=== PATIENT | male | born 1975 | race Caucasian/White ===

== ENCOUNTER 2020-12-07 08:11 | Emergency (ER) | payer OTHER, SELFPAY ==
[2020-12-07 08:13] VITALS: BP 139/76; PULSE 56; RESP 16; TEMP 36.3; O2SAT 100; BMI 19.9
--- NOTE | 2020-12-07 08:52 | EKG12_ITS ---
Test Reason : FALL Blood Pressure : / mmHG Vent. Rate : 051 BPM Atrial Rate : 051 BPM P-R Int : 134 ms QRS Dur : 090 ms QT Int : 434 ms P-R-T Axes : 068 048 037 degrees QTc Int : 400 ms Sinus bradycardia Otherwise normal ECG Confirmed by KASHMIR COX, ABNER ([id number]), city editor BYRON MICHEL ([id number]) on 12/11/2020 10:50:50 AM Referred By: JR Confirmed By:ABNER MARLOW MD
--- NOTE | 2020-12-07 08:54 | RAD_ITS ---
STUDY: X-RAY CHEST REASON FOR EXAM: Male, 45 years old. syncope TECHNIQUE: Single view of the chest was obtained COMPARISON: None. FINDINGS: No consolidative process, pleural effusion or pneumothorax. Trachea is midline. Osseous structures demonstrate no acute abnormalities. IMPRESSION: No acute cardiopulmonary pathology. Electronically Signed: Chevy Kimbrough MD at 9:51 EDT Tel , Service support , RAD/Chest 1 View (Portable)
--- NOTE | 2020-12-07 08:54 | RAD_ITS ---
STUDY: X-RAY - LUMBAR SPINE REASON FOR EXAM: Male, 45 years old. Back pain TECHNIQUE: 2 view(s) of the lumbar spine were obtained. COMPARISON: None FINDINGS: No evidence for acute fractures or dislocation. Scattered Schmorl''s nodes in the lumbar spine. Transitional vertebra at the lumbosacral junction. Mild wedging of the lower thoracic vertebra. IMPRESSION: No acute fractures or dislocation. Electronically Signed: Chevy Kimbrough MD at 9:49 EDT Tel , Service support , RAD/Lumbar Spine 2 or 3 Views
--- NOTE | 2020-12-07 08:55 | ED.DCSUM_ITS ---
History of Present Illness Chief Complaint: Back Informant: Patient Narrative: 45-year-old male presenting with an episode of syncope. He states he has had at least 15 episodes of syncope over his lifetime. This initially started when he was in high school. He states he had an EKG performed at that time which did not show anything. He states that when he gets sick he usually gets orthostatic. He has not felt unwell until last evening. He states that his legs were cramping. He is tried to jump up really fast and felt lightheaded and had an episode of syncope. He admits to LOC but does not know how long. Patient complains of lower back pain after falling. He states he is not naus eous, having chest pain, short of breath. He states that every time he stands he feels lightheaded. Patient states that prior to last evening he has felt well and has been eating and drinking normally. He states he has been making normal stool and urine. He does admit to darker urine. Patient denies significant medical problems otherwise. Past Medical History - Allergies and Home Meds Allergies/Adverse Reactions: Allergies No Known Allergies Allergy (Verified 12/07/20 08:13) Primary Care Physician: Branden Vanegas MD [Primary Care Provider] - Prior records reviewed: Yes Past Medical History: - - History of syncope Surgical History: noncontributory Lives: Alone Smoking Status: Never smoker Alcohol: None Drugs: None Review of Systems General: Denies: Chills, Fever, Sweats Eyes: Denies: Visual changes - bilaterally, Diplopia ENT: Denies: Rhinorrhea, Sore throat Cardiovascular: Denies: Chest pain, Palpitations Respiratory: Denies: Dyspnea, Cough, Dyspnea on exertion Gastrointestinal: Denies: Abdominal pain, Nausea, Vomiting, Diarrhea, Melena, Hematochezia Musculoskeletal: Reports: Back pain - Lumbar, - - Muscle cramps of the lower extremities. Skin: Denies: Rash, Abscess Neurological: Denies: Headache, Weakness, Parasthesia Psych: Denies: Depression, Anxiety Endocrine: Denies: Polyuria, Polydipsia Physical Exam Vital Signs/Narrative: Vital Signs Temp Pulse Resp BP Pulse Ox 12/07/20 08:13 97.4 F L 56 L 16 139/76 H 100 Inital Vital Signs reviewed: Yes General: Well nourished, No Acute Distress Head: Normocephalic, Atraumatic Eyes: Perrl, EOMI. Negative for: Pale conjunctiva ENT: Moist mucous membranes, No rhinorrhea Cardiovascular: Regular rate, Regular rhythm Respiratory: No distress, CTA bilaterally Abdomen: Soft, Nontender, Nondistended Rectal: Deferred Back: Spinal tenderness - Tenderness to palpation midline at at L1-L2. No deformity. No step-off. Extremities: Nontender, No edema Skin: Normal color, No rash. Negative for: Cyanosis, Diaphoresis Neurological: Alert, Oriented x3, Cranial nerves II-XII grossly intact Psychological: Normal affect, Normal Mood Diagnostic/Tx/Re-eval - Medical Decision Making Patient presenting with syncopal episode which he states he has had multiple times throughout his life. He is denying chest pain or shortness of breath. Does complain of lower back pain where he fell. Patient has no strength or neurological deficits from this injury. There is no external injury visible. Patient had EKG performed on arrival which shows sinus rhythm at 51 bpm without signs of ischemic changes as interpreted by myself. Chest x-ray shows no acute cardiopulmonary process as interpreted by myself and radiologist agree. XR of the lumbar spine does show no fracture or subluxation as interpreted by myself and radiologist agree. T brain negative for acute process. Patient did have orthostatics checked in ER and the patient did get hypotensive and bradycardic with this. He was symptomatic. He is given a liter of IV fluids. Lab work obtained shows he is slightly dehydrated. His electrolytes are normal. Patient has an elevated bilirubin but states he always has this. He is having no abdominal pain. After patient good received IV fluids patient was able to ambulate without any difficulties. He is counseled to follow-up with his primary care physician for follow-up. Is given return precautions. Patient stable for discharge. Impression: 1. Syncope 2. Orthostatic hypotension 3. Dehydration 4. Closed head injury 5. Elevated bilirubin ED Disposition - Plan for ED Patient: Disposition: Home or Assisted Living Instructions: ED Back Contusion, ED Hypotension, Orthostatic, ED Near-Fainting- Vagal Reaction Referrals: Branden Vanegas MD [Primary Care Provider] -
--- NOTE | 2020-12-07 08:56 | CT_ITS ---
STUDY: CT BRAIN WITHOUT CONTRAST REASON FOR EXAM: Male, 45 years old. Head injury RADIATION DOSAGE (If Supplied By Facility): CTDIvol = ( 44.99 ) mGy, DLP = ( 829.85 ) mGycm TECHNIQUE: Transaxial CT imaging of the brain was performed without administration of intravenous contrast material. Individualized dose optimization techniques were used for this CT. COMPARISON: No relevant priors. FINDINGS: Normal soft tissue structures. Normal calvarium. Normal size ventricles and extra-axial spaces for the patient''s age. Normal white matter tracts of the cerebral hemispheres. Normal basal ganglia and thalami. Normal brainstem. Normal cerebellum. There is no intracranial hemorrhage. There are no findings of an acute ischemic infarction. Normal visualized paranasal sinuses. CT/Brain/Head without Contrast IMPRESSION: Normal unenhanced CT scan of the brain. Electronically Signed: Lito Vasquez MD at 10:18 EDT Tel , Service support ,
[2020-12-07 08:58] VITALS: BP 111/66; BP 124/74; BP 94/56; PULSE 36; PULSE 47; PULSE 50
[2020-12-07] MEDS: Ketorolac 15 MG/ML Vial IV (09:15)
[2020-12-07] MEDS: 0.9% Normal Saline 1,000 ML 1000 ML IV (09:15)
[2020-12-07 09:19] LABS: Absolute Lymphocyte Count 0.79 X10^3/uL (0.83-4.51); Absolute Neutrophil Count 8.5 X10^3/uL (2.0-7.7); Basophil# 0.03 X10^3/uL; Basophil% 0.3 % (0-1); Eosinophil# 0.02 X10^3/uL; Eosinophils% 0.2 % (0-5); Hematocrit 44.4 % (40-54); Hemoglobin 14.7 g/dL (13.0-16.5); Lymphocyte # 0.79 X10^3/ul (4.0); Mean Corp Hgb Conc 33.1 g/dL (32-36); Mean Corpuscular Hgb 30.7 pg (27.0-32.0); Mean Corpuscular Volume 92.7 fL (80-94); Mean Platelet Vol. 10.7 fl (6.2-12.0); Monocyte# 0.55 X10^3/uL; Monocyte% 5.6 % (0-10); NRBC Flagged by Analyzer 0 % (0-5); Neutrophil # 8.45 X10^3/uL (2.7-7.7); Neutrophil % 85.3 % (47-70); Platelet Count 232 K/mm3 (150-450); RBC Distribution Width CV 11.9 % (11.6-14.6); RBC Distribution Width SD 40.6 fl (35.1-43.9); Red Blood Count 4.79 M/mm3 (4.6-6.2); White Blood Count 9.9 K/mm3 (4.4-11.0)
[2020-12-07 09:44] LABS: ALB/GLOB Ratio 1.2 RATIO (0.9-2.4); AST(SGOT) 30 U/L (15-37); Alanine Aminotransfer ALT/SGPT 25 U/L (16-61); Alkaline Phosphatase 101 U/L (45-117); Anion Gap 5 (5-15); BUN 22 mg/dL (7-18); BUN/Creat Ratio 22.4 RATIO (10-20); Chloride 104 mmol/L (98-107); Creatinine, Serum 0.98 mg/dL (0.70-1.30); EST Glomerular Filtration Rate 88 mL/min (>60); Est Glom Filt Rate - Afr Amer 106 mL/min (>60); Estimated Creatinine Clearance 83.31 ml/min; Globulin 3.2 g/dL (2.2-4.2); Glucose 90 mg/dL (74-106); Potassium 4.5 mmol/L (3.5-5.1); Protein, Total 7.2 g/dL (6.4-8.2); Sodium Level 136 mmol/L (136-145)
[2020-12-07 10:02] VITALS: BP 179/64; PULSE 51; RESP 12; O2SAT 97
[2020-12-07 11:35] VITALS: BP 113/68; PULSE 65; RESP 14
== END 2020-12-07 11:41 | disposition home or self-care (01) ==
PROVIDERS: Emergency Provider Student in an Organized Health Care Education/Training Program; PCP Family Medicine
DX: I95.1 Orthostatic hypotension (principal); E86.0 Dehydration; S09.90XA Unspecified injury of head, initial encounter; X58.XXXA Exposure to other specified factors, initial encounter; Y93.89 Activity, other specified; Y92.89 Other specified places as the place of occurrence of the external cause; Y99.8 Other external cause status
CPT/HCPCS: 70450; 71045; 72100; 80053; 83735; 84484; 85025; 93005; 96361; 96374; 99283

== ENCOUNTER → 2021-01-29 16:08 | Outpatient (CLI) | payer OTHER, SELFPAY ==
[2021-01-29 15:23] VITALS: BMI 20.9
[2021-01-29 18:04] LABS: Thyroid Stim Hormone (TSH) 1.41 uIU/mL (0.358-3.74)
== END ==
PROVIDERS: PCP Family Medicine; Referring Provider Internal Medicine Cardiovascular Disease; Visit Provider Internal Medicine Cardiovascular Disease
DX: R55 Syncope and collapse (principal); R00.1 Bradycardia, unspecified
CPT/HCPCS: 36415; 84443

== ENCOUNTER → 2021-02-03 12:47 | Outpatient (CLI) | payer OTHER, SELFPAY ==
[2021-01-29 15:23] VITALS: BMI 20.9
--- NOTE | 2021-02-03 12:51 | ECHOD_ITS ---
Reason For Study: Arrhythmia Procedure This was a 2D Doppler, Color Flow transthoracic echocardiogram. Bubble study performed. Exam performed in department. Left Ventricle Normal LV size. Left ventricular systolic function is normal. The estimated ejection fraction is 60 %. Normal diastology for age. No regional wall motion abnormalities noted. Right Ventricle Normal RV size. Normal systolic function. Atria Normal left atrium. Normal right atrium. Mitral Valve Normal mitral valve. Tricuspid Valve Normal tricuspid valve. Mild tricuspid valve insufficiency. Pulmonary artery systolic pressure is 20 mmHg. Aortic Valve Normal aortic valve. Trisinus/trileaflet aortic valve. Pulmonic Valve Normal pulmonic valve. Great Vessels Normal aortic root. The pulmonary artery is normal size. Inferior vena cava collapse with respiration. Pericardium/Pleural No pericardial effusion. Medication 22 gauge I.V. with prn adaptor inserted into right arm. Performed a rapid injection of agitated mix of 9 cc saline and 1cc air to assess for atrial septal defect. MMode/2D Measurements & Calculations LVIDd: 4.0 cm IVSd: 0.99 cm LA dimension: 2.5 cm LVIDs: 3.0 cm LVPWd: 1.1 cm RVDd: 3.9 cm FS: 24.4 % LAV(MOD-bp): 45.0 ml LA A4 area: 15.8 cm2 RA A4 area: 15.6 cm2 LAV(MOD-bp) Indexed: 25.2 ml/m2 LAV(MOD-sp2): 43.0 ml LAV(MOD-sp4): 42.5 ml Time Measurements MV dec time: 0.22 sec Doppler Measurements & Calculations MV E max kain: 109.5 cm/sec Lat Peak E' Kain: 19.6 cm/sec Med Peak E' Kain: 13.4 cm/sec MV A max kain: 56.6 cm/sec E/E' lat: 5.6 E/E' med: 8.1 MV E/A: 1.9 MV V2 max: 111.0 cm/sec MV P1/2t max kain: 112.5 cm/sec Ao V2 max: 124.2 cm/sec MV max P.9 mmHg MV P1/2t: 77.8 msec Ao max P.2 mmHg MV V2 mean: 39.2 cm/sec MV dec slope: 423.4 cm/sec2 MV mean P.88 mmHg MV V2 VTI: 36.6 cm MVA(P1/2t): 2.8 cm2 LV V1 max: 104.4 cm/sec PA V2 max: 98.2 cm/sec TR max kain: 200.3 cm/sec LV V1 max P.4 mmHg TR max P.0 mmHg ECHO/Echo Complete Interpretation Summary Normal LV size. Left ventricular systolic function is normal. The estimated ejection fraction is 60 %. Normal diastology for age. Ordering Physician: Anatoliy Fatima Referring Physician: Branden Vanegas Performed By: Walker Johnston RCS
== END ==
PROVIDERS: PCP Family Medicine; Referring Provider Internal Medicine Cardiovascular Disease; Visit Provider Internal Medicine Cardiovascular Disease
DX: R55 Syncope and collapse (principal); R00.1 Bradycardia, unspecified
CPT/HCPCS: 93225; 93226; 93306; A4216

== ENCOUNTER 2023-03-03 12:19 | Day surgery (SDC) | payer OTHER, SELFPAY ==
[2023-03-03] VITALS (10 sets, daily range): BP systolic 117–166; BP diastolic 61–85; PULSE 51–84; RESP 16–18; TEMP 36.2–37.2; O2SAT 94–100; BMI 20.7
--- NOTE | 2023-03-03 13:07 | CT_ITS ---
STUDY: CT ABDOMEN AND PELVIS WITHOUT CONTRAST REASON FOR EXAM: Male, 47 years old. 3 day history of right flank pain and right groin pain. RADIATION DOSAGE (If Supplied By Facility): CTDIvol = ( 6.05 ) mGy, DLP = ( 1288.61 ) mGycm TECHNIQUE: Transaxial images were obtained from the dome of the diaphragm to the symphysis pubis without oral contrast, and without intravenous contrast. Sagittal and coronal images were reconstructed. Individualized dose optimization techniques were used for this CT. COMPARISON: None. FINDINGS: The visualized lung bases are unremarkable. The visualized portions of the heart are within normal limits. Normal liver. Normal gallbladder and extrahepatic biliary system. Normal spleen. Normal pancreas. Normal bilateral adrenal glands. Normal right kidney. Normal left kidney. Normal visualized stomach. Normal small intestine. Normal colon. There is a tubular, thick-walled appendix (>7mm), consistent with acute appendicitis. Increased markings are seen in the surrounding peritoneal fat suggestive of inflammatory change. Normal abdominal aorta. Normal inferior vena cava. Normal retroperitoneum. Normal urinary bladder. Normal abdominal wall. Mild degree of disc space narrowing and spondylosis at the L5-S1 level. CT/Abdomen/Pelvis without Cont IMPRESSION: Findings in keeping with a non-complicated acute appendicitis. Electronically Signed: Rafy Cao MD at 14:34 EDT ,
[2023-03-03] MEDS: 0.9% Normal Saline 1,000 ML 1000 ML IV (13:21)
[2023-03-03 13:29] LABS: Bacteria 0 SEEN /hpf (None Seen); Mucous, Urine 0 SEEN /hpf (<or=2+); Red Blood Cells-Urine 0 SEEN /hpf (0-5); Squamous Epithelial Cells - UA 0 SEEN /hpf (0-5); White Blood Cells 0 SEEN /hpf (0-5)
[2023-03-03 13:37] LABS: Absolute Lymphocyte Count 0.59 X10^3/uL (0.83-4.51); Absolute Neutrophil Count 10.7 X10^3/uL (2.0-7.7); Basophil# 0.04 X10^3/uL; Basophil% 0.3 % (0-1); Hematocrit 45.8 % (40-54); Hemoglobin 14.9 g/dL (13.0-16.5); Lymphocyte # 0.59 X10^3/ul (0.83-4.51); Lymphocyte % 4.8 % (19-41); Mean Corp Hgb Conc 32.5 g/dL (32-36); Mean Corpuscular Hgb 30.4 pg (27.0-32.0); Mean Corpuscular Volume 93.5 fL (80-94); Mean Platelet Vol. 10.8 fl (6.2-12.0); Monocyte# 0.89 X10^3/uL; Monocyte% 7.3 % (0-10); NRBC Flagged by Analyzer 0 % (0-5); Neutrophil # 10.67 X10^3/uL (2.7-7.7); Neutrophil % 87.2 % (47-70); POSITIVE DIFFERENTIAL YES; Platelet Count 195 K/mm3 (150-450); RBC Distribution Width CV 12.2 % (11.6-14.6); RBC Distribution Width SD 42.4 fl (35.1-43.9); White Blood Count 12.2 K/mm3 (4.4-11.0)
[2023-03-03 13:43] LABS: Color, Urine Yellow (Yellow); Glucose, Dipstick Normal (Normal); Ketone-Dipstick Negative (Negative); Leukocyte Esterase-Dipstick Negative /ul (Negative); Nitrite-Dipstick Negative (Negative); Occult Blood-Urine Negative /ul (Negative); Protein-Dipstick 30 mg/dl (Negative); Specific Gravity, Urine 1.015 (1.002-1.030); Urine Bilirubin Dipstick Negative (Negative); Urine Clarity Clear (Clear); Urine Urobilinogen Normal (Normal)
[2023-03-03 13:43] LABS: Differential Indicated SCAN CRITERIA MET
[2023-03-03 13:58] LABS: AST(SGOT) 26 U/L (15-37); Alanine Aminotransfer ALT/SGPT 23 U/L (16-61); Albumin, Serum 4.1 g/dL (3.2-5.0); Alkaline Phosphatase 101 U/L (45-117); Anion Gap 6 (5-15); BUN 15 mg/dL (7-18); BUN/Creat Ratio 13.3 RATIO (10-20); Calcium,Total 9.3 mg/dL (8.5-10.1); Chloride 102 mmol/L (98-107); Creatinine, Serum 1.13 mg/dL (0.70-1.30); EST Glomerular Filtration Rate 74 mL/min (>60); Est Glom Filt Rate - Afr Amer 90 mL/min (>60); Estimated Creatinine Clearance 73.37 ml/min; Globulin 4.1 g/dL (2.2-4.2); Glucose 108 mg/dL (74-106); Lipase 87 U/L (13-75); Potassium 3.7 mmol/L (3.5-5.1); Protein, Total 8.2 g/dL (6.4-8.2); Sodium Level 134 mmol/L (136-145)
[2023-03-03 14:15] LABS: Differential Comment SCANNED
--- NOTE | 2023-03-03 15:11 | ED.VIS.GI ---
HPI HPI - GI History of Present Illness Chief Complaint: Flank Pain Informant: patient Abdominal Pain/Flank Pain Onset: Days (4) Context: Gradual Onset Timing: Waxes and wanes Quality: Stabbing Location: RUQ and RLQ Worsened by: Food and Movement Relieved by: Remaining Still Nausea/Vomiting/Emesis GI Symptom: Positive for Nausea; Negative for Vomiting Diarrhea/Melena/Hematochezia GI Symptom: Negative for Diarrhea, Melena or Hematochezia Associated Symptoms Associated Symptoms: Positive for Frequency; Negative for Dysuria or Hematuria Narrative Narrative: Patient presents with right-sided abdominal pain that has been getting worse over the last 4 days. Patient states it is worse with eating and worse with movement. Patient states it is better with rest. Patient describes the pain as stabbing. Patient states the pain is mainly over the right side of his abdomen. Patient states that today he had an episode of chills and started feeling lightheaded. Patient admits to nausea but denies any vomiting. Patient admits to some urinary frequency but denies any dysuria or hematuria. Patient denies any diarrhea, melena, or hematochezia. PFSH PFSH Medical History Bradycardia Hyperbilirubinemia Orthostatic hypotension Syncope, vasovagal Home Medications ammonium lactate 12 % topical cream 1 applic topical BID 01/29/21 [History Last Taken Unknown] Allergy/AdvReac Type Severity Reaction Status Date / Time No Known Allergies Allergy Verified 03/03/23 12:22 Family History Mother Hyperlipidemia Father Cancer Surgical History History of tonsillectomy Social History Smoking Status: Never smoker ROS ROS ED Constitutional Constitutional ED: Reports chills, fever(s) and subjective Eyes Eyes: Denies blurry vision or change in vision ENT ENT ED: Denies rhinorrhea or sore throat Cardiovascular Cardiovascular: Denies chest pain or palpitations Respiratory/Chest Respiratory/Chest: Denies cough or dyspnea Gastrointestinal Gastrointestinal: Reports nausea; Denies vomiting Genitourinary Genitourinary ED: Reports urinary frequency; Denies dysuria or hematuria Musculoskeletal Musculoskeletal: Denies back pain or neck pain Integumentary Denies abscess or rash Neurologic Neurologic: Denies headache(s) or weakness Allergic/Immunologic Allergic/Immunologic ED: Denies mouth swelling or urticaria EXAM Physical Exam Const Vital Signs: 03/03/23 12:20 03/03/23 13:00 Temperature 98.1 F Temperature Source Temporal Pulse Rate 84 Respiratory Rate 16 Respiratory Effort Normal Non-Labored Respiratory Pattern Normal Blood Pressure 166/85 H Blood Pressure Mean 112 Pulse Ox 100 Oxygen Delivery Method Room Air Positive well nourished and well developed General Appearance ED: well developed and NAD HEENT Reports moist mucous membranes Neck supple and no JVD Resp normal respiratory effort and clear to auscultation bilaterally Cardio regular rate and regular rhythm GI normal to inspection, nondistended, normoactive bowel sounds Palpation: soft and tender RLQ; Negative for guarding or rebound tenderness present Extremity normal to inspection General Extremety ED: Negative for edema or tenderness General Extremity: Negative for edema Neuro oriented x3, CN's II-XII intact bilaterally and no sensory deficits noted Sensorium / Orientation: alert Motor Exam: strength 5/5 throughout Psych mental status grossly normal Skin no rashes or lesions noted MDM MDM MDM Narrative Medical decision making narrative: Differential diagnosis includes appendicitis, ureteral calculus, pyelonephritis, urinary tract infection, pancreatitis, colitis, gastroenteritis, bowel obstruction, and perforation. CBC will be obtained to assess for leukocytosis and anemia. Comprehensive metabolic profile will be obtained to assess for electrolyte abnormality, renal function, and hepatic function. Lipase will be obtained to assess for pancreatitis. Urinalysis will be obtained to assess for urinary tract infection and pyelonephritis. Lab Data Attestation: I reviewed the patient's lab results. Lab results narrative: CBC was reviewed. There is a mild leukocytosis of 12.2. Comprehensive metabolic profile was reviewed. Total bilirubin was elevated at 3.0. The remainder was within normal limits. Lipase was reviewed and was slightly elevated at 87. Urinalysis was reviewed. There is no evidence of urinary tract infection or hematuria. Labs: Laboratory Results - last 24 hr 03/03/23 03/03/23 13:22 13:25 WBC 12.2 H RBC 4.90 Hgb 14.9 Hct 45.8 MCV 93.5 MCH 30.4 MCHC 32.5 RDW Std Deviation 42.4 RDW Coeff of Jonatan 12.2 Plt Count 195 MPV 10.8 Immature Gran % (Auto) 0.400 Neut % (Auto) 87.2 H Lymph % (Auto) 4.8 L [place] % (Auto) 7.3 Eos % (Auto) 0.0 Baso % (Auto) 0.3 Absolute Neuts (auto) 10.7 H Absolute Lymphs (auto) 0.59 L Nucleated RBC % 0 Differential Comment SCANNED Sodium 134 L Potassium 3.7 Chloride 102 Carbon Dioxide 26.0 Anion Gap 6 BUN 15 Creatinine 1.13 Estim Creat Clear Calc 73.37 Est GFR (MDRD) Af Amer 90 Est GFR (MDRD) Non-Af 74 BUN/Creatinine Ratio 13.3 Glucose 108 H Calcium 9.3 Total Bilirubin 3.00 H AST 26 ALT 23 Alkaline Phosphatase 101 Total Protein 8.2 Albumin 4.1 Globulin 4.1 Albumin/Globulin Ratio 1.0 Lipase 87 H Urine Color Yellow Urine Clarity Clear Urine pH 8.0 Ur Specific [place] 1.015 Urine Protein 30 H Urine Glucose (UA) Normal Urine Ketones Negative Urine Occult Blood Negative Urine Nitrite Negative Urine Bilirubin Negative Urine Urobilinogen Normal Ur Leukocyte Esterase Negative Urine RBC 0 SEEN Urine WBC 0 SEEN Ur Squamous Epith Cells 0 SEEN Urine Bacteria 0 SEEN Urine Mucus 0 SEEN Radiography Diagnostic Testing: Clinical Impression(s) from Imaging Studies Abdomen/Pelvis CT 03/03/23 13:07 IMPRESSION: Findings in keeping with a non-complicated acute appendicitis. Electronically Signed: Rafy Cao MD at 14:34 EDT , CT scan of the abdomen pelvis was obtained. There is a thick walled appendix consistent with appendicitis. This was interpreted by the radiologist and was also independently reviewed by myself. Treatment and Re-Evaluation :: Patient was given IV fluids. Patient was given a dose of Zosyn here. Patient declined analgesics at this time. Patient states his pain is fine as long as he does not move. Case was discussed with Dr. Winters. He will be in to evaluate the patient and likely take the patient to the operating room. Patient was advised of his findings. Patient understands and is agreeable with the plan. All questions were answered. Discharge Plan Dx/Rx/DC Orders Clinical Impression: Acute appendicitis Disposition Disposition: Acute Care Hospital [facility]
--- NOTE | 2023-03-03 15:55 | NURSING ---
surgery bordru acute appendicitis
--- NOTE | 2023-03-03 16:41 | PCM.HP.STD ---
[facility] - General General Date of Service: 03/03/23 Chief Complaint: Abdominal pain HPI Narrative SYLVIE MTZ, is a 47 M, with a past history of bradycardia and numerous syncopal episodes (estimated 10-20), who presents to [facility] with complaints of abdominal pain that began 03/01/2023. Mr. Mtz reports that his pain was initially more central and in the upper part of his abdomen but has moved towards the right lower quadrant. He states the first evening he experienced the pain he began with frequent urination. He notes that the upset stomach feeling that he started with is nothing new to him, but when he experienced the frequent urination and did not experience remission of this discomfort he decided to seek evaluation. The above symptoms seem to be exacerbated with eating. Mr. Mtz believes he had a fever last evening as well. He notes that he felt better this morning and tried to go to work, but when he became lightheaded he decided to make a doctor's appointment. Shortly thereafter he experienced more severe abdominal pain and more lightheadedness and so he decided to present to the emergency department. ER work-up is notable for CBC with leukocytosis of 12.[address] imaging shows evidence of acute uncomplicated appendicitis. [facility] Medical History Bradycardia Hyperbilirubinemia Orthostatic hypotension Syncope, vasovagal Home Medications ammonium lactate 12 % topical cream 1 applic topical BID 01/29/21 [History Last Taken 03/03/23] triamcinolone acetonide 0.1 % topical cream 1 applic topical DAILY PRN PRN skin irritation 03/03/23 [History Last Taken 03/02/23] Allergy/AdvReac Type Severity Reaction Status Date / Time No Known Allergies Allergy Verified 03/03/23 12:22 Family History Mother Hyperlipidemia Father Cancer Surgical History History of tonsillectomy Social History Smoking Status: Never smoker Vital Signs Vital Signs Vital Signs: 03/03/23 12:20 03/03/23 13:00 03/03/23 15:51 Temperature 98.1 F Temperature Source Temporal Pulse Rate 84 82 Respiratory Rate 16 18 Respiratory Effort Normal Non-Labored Respiratory Pattern Normal Blood Pressure 166/85 H 125/81 H Blood Pressure Mean 112 95 Pulse Ox 100 95 Oxygen Delivery Method Room Air Room Air 03/03/23 16:15 Temperature 98.0 F Temperature Source Temporal Pulse Rate 70 Respiratory Rate 18 Respiratory Effort Respiratory Pattern Blood Pressure 123/69 H Blood Pressure Mean 82 Pulse Ox 98 Oxygen Delivery Method Room Air Weight Weight: 140 lb Body Mass Index (BMI) 20.7 Physical Exam Const alert, oriented x3 and no apparent distress Resp normal respiratory effort GI GI Narrative: Slender, nondistended, no scars, no obvious herniations. Tender to palpation over McBurney's point. Negative Rovsing, negative psoas, negative obturator Results Lab / Micro Data 03/03/23 13:25 03/03/23 13:25 Labs: Laboratory Results - last 24 hr 03/03/23 13:22: Urine Color Yellow, Urine Clarity Clear, Urine pH 8.0, Ur Specific [place] 1.015, Urine Protein 30 H, Urine Glucose (UA) Normal, Urine Ketones Negative, Urine Occult Blood Negative, Urine Nitrite Negative, Urine Bilirubin Negative, Urine Urobilinogen Normal, Ur Leukocyte Esterase Negative, Urine RBC 0 SEEN, Urine WBC 0 SEEN, Ur Squamous Epith Cells 0 SEEN, Urine Bacteria 0 SEEN, Urine Mucus 0 SEEN 03/03/23 13:25: WBC 12.2 H, RBC 4.90, Hgb 14.9, Hct 45.8, MCV 93.5, MCH 30.4, MCHC 32.5, RDW Std Deviation 42.4, RDW Coeff of Jonatan 12.2, Plt Count 195, MPV 10.8, Immature Gran % (Auto) 0.400, Neut % (Auto) 87.2 H, Lymph % (Auto) 4.8 L, [place] % (Auto) 7.3, Eos % (Auto) 0.0, Baso % (Auto) 0.3, Absolute Neuts (auto) 10.7 H, Absolute Lymphs (auto) 0.59 L, Nucleated RBC % 0, Differential Comment SCANNED, Sodium 134 L, Potassium 3.7, Chloride 102, Carbon Dioxide 26.0, Anion Gap 6, BUN 15, Creatinine 1.13, Estim Creat Clear Calc 73.37, Est GFR (MDRD) Af Amer 90, Est GFR (MDRD) Non-Af 74, BUN/Creatinine Ratio 13.3, Glucose 108 H, Calcium 9.3, Total Bilirubin 3.00 H, AST 26, ALT 23, Alkaline Phosphatase 101, Total Protein 8.2, Albumin 4.1, Globulin 4.1, Albumin/Globulin Ratio 1.0, Lipase 87 H Radiology Impression Abdomen/Pelvis CT 03/03/23 13:07 IMPRESSION: Findings in keeping with a non-complicated acute appendicitis. Electronically Signed: Rafy Cao MD at 14:34 EDT , Assessment & Plan Assessment/Plan (1) Acute appendicitis: PLAN: This is a 47-year-old male with past history of bradycardia and vasovagal syncope who presents with signs and symptoms of acute appendicitis that began approximately 48 hours ago. His pain has become more localized to the right lower quadrant as is typical with acute appendicitis and his exam demonstrates tenderness over McBurney's point. Given this exam and his CT imaging, I have recommended laparoscopic appendectomy. Mr. Mtz accepted this recommendation but questioned what his postoperative recovery would look like and when he may be able to resume activity. These questions and all others were addressed. Plan to proceed to the operating room for emergent laparoscopic appendectomy at first operating room availability. Zosyn administered by emergency medicine. Charges/Coding Visit Charges Inpatient E&M: 64291 Init Hosp L2
[2023-03-03] MEDS: Bupivacaine 0.5% PF 10 ML VIAL (19:56)
--- NOTE | 2023-03-03 20:09 | OP.PCM_ITS ---
Report of Operation Date of Procedure: 03/03/23 Pre-Operative Diagnosis: Acute appendicitis Post-Operative Diagnosis: 1. Acute uncomplicated appendicitis 2. Incidentally-noted left inguinal hernia and liver lesion Surgery/Procedure Performed:: Laparoscopic appendectomy Surgeon: Nino Winters change management specialist: None Type of Anesthesia: General/Supplemental Anesthesiologist: Fransisco Bernal Specimen's removed: appendix Estimated Blood Loss (mL): 15 Description of Procedure: After appropriate identification in the preoperative holding area, the patient was brought to the operating room and placed supine on the operating room table. Antibiotics had been preoperatively administered. Patient was then induced with general endotracheal anesthetic. The abdomen was prepped and draped in usual sterile fashion. Formal timeout was conducted to confirm both the patient and the procedure. A supraumbilical incision was made and carried down to the level of the fascia which was sharply opened. After opening the peritoneum in like fashion a finger sweep was made to confirm position, and a balloon trocar was placed and pneumoperitoneum was established to 15 mmHg. Patient was positioned in Trendelenburg with the left side down. 2 additional 5 mm trocars were placed in the left lower quadrant and suprapubic positions. The peritoneum was inspected and there were no signs of inadvertent injury from this Lobo entry. A left inguinal hernia was incidentally observed and photographed. The appendix was visualized with a moderate degree of inflammation and was crossing the terminal ileum. Using blunt laparoscopic dissection, a window was made in the mesoappendix adjacent to the appendiceal base. Then the base of the appendix was sealed and amputated with the use of an Endo ARACELI stapler. The mesoappendix was divided with application of a laparoscopic harmonic taking great care to divide adhesions to the colon and establish a safe working distance from the colon. Given the presence of a small bowel just beneath the appendix the mesoappendix was taken closely to the body of the appendix. There did not appear to be any perforations along its length as it began to curl retrocecal and was bluntly extracted from this location. Once it was completely free of the soft tissue attachments, the appendix was placed in an Endo Catch bag. The staple line was inspected for hemostasis. After hemostasis was confirmed the appendix was removed from the umbilical port site. Some irriga tion was suctioned free and the area of Morison's pouch and in doing so I noted an incidental lesion of the liver which appeared to represent a hemangioma of segment 4. Once again, a photo was taken of this finding for postoperative counseling. Pneumoperitoneum was then evacuated and the supraumbilical port site fascia was closed with #1 Vicryl in a [id number] fashion. The port sites were infiltrated with 20 mL local anesthetic. The skin of each port site was closed with 4-0 Monocryl in a subcuticular fashion. Steri-Strips and OpSite dressings were applied. Patient tolerated procedure well without any apparent complications. They were awoken from general anesthetic without issue and transferred to post anesthesia care unit for ongoing recovery. Grafts/Implants Used: None Complications None Admit VTE Documentation VTE Mechan Device Prophylaxis: SCD's Procedures Digestive 40xxx-49xxx: 00664 Laparoscopy appendectomy
--- NOTE | 2023-03-03 20:17 | DCINST_ITS ---
Discharge Instructions Diet Discharge Diet: No restrictions Activity Discharge Activity: May Not Drive (No driving while using narcotic pain medication) and May Shower (Postoperative day 1) May shower in (days): 1 Ice area for (Minutes): 20 Lifting Restrictions: No lifting greater than 15 pounds for 2 weeks after surgery Dressing / Incision Call your doctor if your incision/area has: Continuous Slow Oozing, Increased Pain/ Swelling, Increased Redness, Foul Smelling Discharge and Swelling at the incision site Call your doctor if you observe: Fever of 101 or Higher Remove Dressing in: 2 days (Please leave Steri-Strips intact until they fall off spontaneously or are taken off at your follow-up visit) Cleanse incision/area with: Soap & Water Follow Up Care Please Follow Up With: Nino Winters MD When: 7-10days postop Test Results: Test results from this visit will be discussed in further detail at your follow- up appointment, if applicable. Discharge Plan Admission Primary Reason for Your Visit: Acute appendicitis Attending Provider: Nino Winters Primary Care Provider: Branden Vanegas Discharge Orders/Prescriptions Prescriptions: No Action ammonium lactate 12 % cream 1 applic topical BID triamcinolone acetonide 0.1 % cream 1 applic TOPICAL DAILY PRN PRN (Reason: skin irritation) Patient Comments: apply topically twice a day hydrocodone-acetaminophen 5-325 mg tablet 1 tab PO Q6H PRN (Reason: pain) 3 Days Qty: 10 0RF Referrals / Follow Up: Branden Vanegas MD [Primary Care Provider] - Disposition Disposition (needs filled in before D/C Order can be placed): Home, Self Care
[2023-03-03] MEDS: Lactated Ringers 1,000 ML 15 ML IV (20:55)
[2023-03-03] MEDS: HYDROcodone Bitartrate/Apap 5/325 Tablet PO (21:36)
--- NOTE | 2023-03-04 | APP_PTH ---
PATIENT: SYLVIE LEMUS LOC: [facility] [place] U#:[id number] AGE/SX: 47/M ROOM: RE03/03/[address]: Dr. Nino Winters MD : 1975 BED: DIS: 03/03/2023 SPEC #: [id number] RECD: 03/04/23 13:10 STATUS: [place] #: [id number] JESS: 03/04/23 00:[address]: Nino Winters DEPT: SURGICAL PATHOLOGY RECD BY: Bert Mejía ENTERED: 03/04/23 14:00 SP TYPE: APPENDIX OTHR DR: Dr. Branden Vanegas MD Tissues: Appendix, NOS Procedures: Surgery Specimen Level III HEADER OPERATION: Laparoscopic appendectomy PRE-OP DIAGNOSIS: Acute appendicitis TISSUE SUBMITTED: Appendix MICROSCOPIC DIAGNOSIS Appendix, appendectomy: Acute appendicitis and periappendicitis. HAIDER:sheree 03/05/2023 MICROSCOPIC DESCRIPTION Slides are reviewed. GROSS DESCRIPTION Received in fixative is one container labeled with the patient's name and designated appendix. The specimen consists of an appendix, partially opened, measuring 4.0 cm in length and up to 1.0 cm in diameter. The attached periappendiceal adipose tissue measures up to 2.5 cm in width. The serosa is congested and hemorrhagic. The mucosa is also congested. No obvious perforation is identified. The lumen is pinpoint. No fecalith is identified. Aircraft Maintenance Instructor sections are submitted in one cassette. / SJ:sheree 03/04/2023 TC:2 CPT: 52316
== END 2023-03-03 21:58 | disposition home or self-care (01) ==
LOC: ED 16:10 → SDC 16:31 → ACINP 16:31
PROVIDERS: Emergency Provider Emergency Medicine; PCP Family Medicine; Visit Provider Surgery
PROC: 0DTJ4ZZ Resection of Appendix, Percutaneous Endoscopic Approach (ICD-10-PCS; CPT 44970; principal; 2023-03-03 16:40)
DX: K35.80 Unspecified acute appendicitis (principal); K40.90 Unilateral inguinal hernia, without obstruction or gangrene, not specified as recurrent; K76.9 Liver disease, unspecified
CPT/HCPCS: 44970; 74176; 80053; 81001; 83690; 85025; 88304; 99284; J7030; J7120; J2405

== ENCOUNTER → 2023-03-16 | Outpatient (CLI) | payer OTHER, SELFPAY ==
--- NOTE | 2023-03-16 15:11 | VDLE_ITS ---
Reason For Study: pain Procedure LEFT This is a venous duplex using B-mode, color GSV is normal. flow and spectral Doppler. CFV is compressible, spontaneous, phasic, Exam performed in department. competent, and demonstrates normal The exam was abbreviated due to the COVID 19 augmentation. protocol. FV is compressible, spontaneous, phasic, The exam was diagnostic. competent and demonstrates normal A preliminary report was called and/or faxed augmentation. to Mary Ann at Dr. Winters's office. POP V is compressible, spontaneous, phasic, competent and demonstrates normal augmentation. T/P Trunk is compressible. PTV is compressible. Acute deep vein thrombosis is noted in the Per V. It is dilated and NONCOMPRESSIBLE. Acute deep vein thrombosis is noted in the Soleus V. It is dilated and NONCOMPRESSIBLE. VL/Venous Duplex US, Unilateral Interpretation Summary Acute deep venous thrombosis left peroneal and soleus veins Patent and compressible left great saphenous vein Abbreviated COVID-19 protocol utilized Ordering Physician: Nino Winters Performed By: Wayne Mejias RVT
== END | disposition home or self-care (01) ==
LOC: CVS 15:08
PROVIDERS: PCP Family Medicine; Referring Provider Surgery; Visit Provider Surgery
DX: M79.605 Pain in left leg (principal)
CPT/HCPCS: 93971

== ENCOUNTER → 2023-03-31 | Outpatient (CLI) | payer OTHER, SELFPAY ==
--- NOTE | 2023-03-31 16:54 | CT_ITS ---
EXAM: CT ABDOMEN AND PELVIS WITH INTRAVENOUS CONTRAST CLINICAL INDICATION: liver hemangioma? DELAYS THROUGH LIVER X 3. PRIOR APPENDECTOMY TECHNIQUE: Helically acquired images were obtained of the abdomen and pelvis with intravenous contrast. This CT exam was performed using one or more of the following dose reduction techniques: automated exposure control, adjustment of the mA and/or kV according to patient size, and/or use of iterative reconstruction technique. CONTRAST: IV 50mL Isovue-370 RADIATION DOSE: CTDIvol = 8.01 mGy, DLP = 922.29 mGy-cm. COMPARISON: February 2023, there was acute appendicitis and at least 3 hypodense indeterminate lesions of the liver on prior unenhanced exam. FINDINGS: LOWER THORAX: Unremarkable. Lung bases are clear. No cardiomegaly. No significant pericardial effusion. ABDOMEN: LIVER: Contrast enhanced early portal venous phase images and delayed images at 4 minutes, 5 minutes, 7 minutes from the initial exam are provided. 4 separate lesions.There is initial peripheral globular enhancement of multiple hepatic lesions including 4.8 cm x 3.1 cm x 2.5 cm in the subcapsular superior left lobe, 2.5 cm x 3.9 cm x 4 cm lesion in the subcapsular medial left lobe abutting the fissure of the falciform ligament, a 1.8 cm x 1.7 cm x 2.1 cm lesion involving the nonsubcapsular- Central posterior segment of the right lobe of the liver, and a subcapsular lesion involving the lateral mid right lobe of the liver measuring 1.8 cm x 1.6 cm x 1.7 cm. Most of the lesions have at least partial to complete central fill-in, incompletely but progressive central enhancement involving largest lesion in the superior left lobe of the liver, almost complete fill-in and hyperdensity in the lesion near the falciform ligament. Complete filling in with contrast of the other 2 lesions. GALLBLADDER AND BILE DUCTS: Unremarkable. No calcified gallstones. No gallbladder distention or wall edema. No intra- or extrahepatic biliary ductal dilation. PANCREAS: Unremarkable. No focal cystic or solid mass. SPLEEN: Unremarkable. Normal size without focal cystic or solid mass. ADRENALS: Unremarkable. No nodules. KIDNEYS AND URETERS: Unremarkable. Normal renal size and position. No hydronephrosis. STOMACH AND BOWEL: Mildly prominent small bowel content. Moderate stool in the right colon, mild stool in transverse colon, mild stool in the distal sigmoid and rectum. Patent mesenteric vessels. No stomach or bowel distention. No focal inflammatory change. PELVIS: APPENDIX: The appendix has been removed. BLADDER: Unremarkable. REPRODUCTIVE: Unremarkable as visualized. No mass. ABDOMEN and PELVIS: INTRAPERITONEAL SPACE: Unremarkable. No ascites or other fluid collection. No free air. BONES/JOINTS: Unremarkable. No suspicious lytic or blastic abnormality. SOFT TISSUES: There is a small fat-containing left inguinal hernia. VASCULATURE: See above. LYMPH NODES: Unremarkable. No enlarged lymph nodes. OTHER FINDINGS: Mild posterior calcified bulging disc margin or osteophyte at L5-S1, and mild annular disc bulge at L4-5. No significant spinal stenosis. No suspicious bone lesions. CT/Abdomen/Pelvis W IV Cont ONLY IMPRESSION: 1. 4 separate masses highly consistent with benign hemangiomas in the liver. Early characteristic peripheral globular enhancement. Characteristic contrast progression on delayed images. 2. Appendectomy since most recent prior exam. No fluid collection. No additional acute findings. 3. Mildly prominent bowel contents. 4. Slight fat in the proximal left inguinal ring. Electronically Signed: Gabby Damon MD at 9:25 EDT ,
== END | disposition home or self-care (01) ==
LOC: CT 16:52
PROVIDERS: PCP Family Medicine; Referring Provider Surgery; Visit Provider Surgery
DX: D18.03 Hemangioma of intra-abdominal structures (principal); I82.409 Acute embolism and thrombosis of unspecified deep veins of unspecified lower extremity
CPT/HCPCS: 74177; Q9967

== ENCOUNTER → 2023-05-27 | Outpatient (CLI) | payer OTHER, SELFPAY ==
--- NOTE | 2023-05-27 15:45 | CT_ITS ---
STUDY: CT ABDOMEN AND PELVIS WITHOUT CONTRAST REASON FOR EXAM: Male, 48 years old. DIVERTICULITIS RADIATION DOSAGE (If Supplied By Facility): CTDIvol = ( 5.85 ) mGy, DLP = ( 260.30 ) mGycm TECHNIQUE: Transaxial images were obtained from the dome of the diaphragm to the symphysis pubis without oral contrast, and without intravenous contrast. Sagittal and coronal images were reconstructed. Individualized dose optimization techniques were used for this CT. COMPARISON: March 03, 2023. FINDINGS: The visualized lung bases are unremarkable. The visualized portions of the heart are within normal limits. There are again noted multiple hypoattenuated 5 cm hepatic lesions in the liver. Normal gallbladder and extrahepatic biliary system. Normal spleen. Normal pancreas. Normal bilateral adrenal glands. Punctate stone in the right kidney. Normal left kidney. Normal visualized stomach. Normal small intestine. Normal colon. The appendix is not visualized. Normal abdominal aorta. Normal inferior vena cava. Normal retroperitoneum. Normal urinary bladder. Normal abdominal wall. Normal osseous structures. CT/Abdomen/Pelvis without Cont IMPRESSION: Small relatively stable hypoattenuated hepatic lesions. Possible punctate nonobstructive right renal stone. No CT evidence of diverticulitis. Electronically Signed: Gary Sheffield DO at 16:20 EDT Reading Location ID and State: [facility] / [place] Tel [phone], Service support ,
== END | disposition home or self-care (01) ==
PROVIDERS: PCP Family Medicine; Referring Provider Family Medicine; Visit Provider Family Medicine
DX: K57.92 Diverticulitis of intestine, part unspecified, without perforation or abscess without bleeding (principal)
CPT/HCPCS: 74176